=== PATIENT | male | born 1945 | race Caucasian/White ===

== ENCOUNTER 2017-04-11 09:34 | Emergency (ER) | payer MEDICARE, BC ==
[2017-04-11 10:09] VITALS: BP 161/78
--- NOTE | 2017-04-11 10:32 | EDM.PDOC ---
[id number] Complaint: L LEG INJURY Time Seen by Provider: 04/11/17 10:00 Source of Information: Reports: Patient, Family History Limitations: Reports: No Limitations - History of Present Illness INITIAL COMMENTS - FREE TEXT/NARRATIVE: 71-year-old male is in the emergency room wanting his lower left leg looked at. He fell and injured his lower left leg when he had it go between 2 objects and get pinched, then turned while he fell. He said swelling of the lower extremity since, bruising, and pain especially when for standing and walking, however after activity it seems to be better. Today it started to become red and warm and it concerned him. It is also not improving. No other injury, no fever or chills. Onset: Other (One week ago) Location: Reports: Lower Extremity, Left Quality: Reports: Ache, Throbbing Severity: Moderate Improves with: Reports: Other (Improves after taking a few steps) Worsens with: Reports: Other (Initial weightbearing and activity) Associated Symptoms: Reports: No Other Symptoms - Related Data Allergies Allergy/AdvReac Type Severity Reaction Status Date / Time No Known Allergies Allergy Verified 05/23/14 15:44 Home Meds: Home Meds Aspirin [Ecotrin] 81 mg PO DAILY 05/23/14 [History] Atenolol [Atenolol] 100 mg PO DAILY 05/23/14 [History] Fluticasone Propionate [Flovent] 1 spray INH BID 04/11/17 [History] Lisinopril [Prinivil] 0.5 tab PO DAILY 04/11/17 [History] PARoxetine [Paxil] 0.5 tab PO DAILY 04/11/17 [History] Pravastatin [Pravachol] 0.5 tab PO BEDTIME 04/11/17 [History] Prazosin HCl [Prazosin] 2 tab PO BEDTIME 04/11/17 [History] Primidone 1 tab PO QID 04/11/17 [History] Past Medical History Cardiovascular History: Reports: High Cholesterol, Hypertension Respiratory History: Reports: Pneumonia, Recurrent Genitourinary History: Reports: Prostate Disorder - Past Surgical History HEENT Surgical History: Reports: Cataract Surgery Social & Family History - Tobacco Use Years of Tobacco use: 25 - Alcohol Use Days Per Week of Alcohol Use: 0 - Recreational Drug Use Recreational Drug Use: No Review of Systems - Review of Systems Review Of Systems: See Below Constitutional: Denies: Fever Respiratory: Denies: Shortness of Breath Cardiovascular: Denies: Chest Pain GI/Abdominal: Denies: Abdominal Pain, Nausea, Vomiting Genitourinary: Reports: No Symptoms Skin: Reports: Bruising, Erythema, Other (Developing some warmth over the anterior sexton on the injured left side) Neurological: Reports: No Symptoms Psychiatric: Reports: No Symptoms ED EXAM, GENERAL - Physical Exam Exam: See Below Exam Limited By: No Limitations General Appearance: Alert, No Apparent Distress Respiratory/Chest: No Respiratory Distress, Lungs Clear Cardiovascular: Regular Rate, Rhythm Extremities: Other (Exam is otherwise limited to the lower extremities. He has tense edema through the lower left leg from the knee to the forefoot, ecchymosis along the medial ankle and anterior lower leg with erythema and warmth, tenderness to palpation over the anterior lower leg. No crepitus or deformity.) Course - Vital Signs Last Recorded V/S: Last Vital Signs Temp 99.1 F 04/11/17 10:36 Pulse 60 04/11/17 10:36 Resp 16 04/11/17 10:36 BP 161/78 H 04/11/17 10:36 Pulse Ox 94 L 04/11/17 10:36 - Orders/Labs/Meds Orders: Active Orders 24 hr Category Date Time Status Ankle Min 3V Lt [CR] Stat Exams 04/11/17 09:56 Taken Tibia Fibula Lt [CR] Stat Exams 04/11/17 09:56 Taken VL Duplex Lwr Ext Veins Ltd Lt [US] Stat Exams 04/11/17 10:21 Taken DME for Discharge [COMM] Stat Oth 04/11/17 11:19 Ordered - Re-Assessments/Exams Free Text/Narrative Re-Assessment/Exam: 04/11/17 10:38 An x-ray of the lower leg as well as the ankle were obtained and show no acute fracture. This was followed by an ultrasound of the lower extremity. 04/11/17 11:21 Ultrasound was negative. A four-inch Ole wrap was applied the lower leg, patient was given 7 days with the cephalexin to take 500 3 times daily and 10 [place] for additional pain control. Crutches were given, and he was told to followup in 3-4 days if crutches are still needed. Departure - Departure Time of Disposition: 11:34 Disposition: Home, Self-Care 01 Condition: good Clinical Impression: Traumatic hematoma of left lower leg with infection Qualifiers: Encounter type: initial encounter Qualified Code(s): S80.12XA - Contusion of left lower leg, initial encounter - Discharge Information Instructions: Hematoma, [id number] Referrals: Odin Little MD [Primary Care Provider] - Forms: ED Department Discharge Care Plan Goals: Continue your regular medications, add antibiotic as prescribed. Wrap leg for support, elevate when able and use crutches until pain improves. Recheck in 4 or 5 days if still unable to bear weight without significant discomfort. Use stronger pain medications as prescribed when needed. - My Orders Last 24 Hours: My Active Orders 04/11/17 09:56 Ankle Min 3V Lt [CR] Stat Tibia Fibula Lt [CR] Stat 04/11/17 10:21 VL Duplex Lwr Ext Veins Ltd Lt [US] Stat 04/11/17 11:19 DME for Discharge [COMM] Stat - Assessment/Plan Last 24 Hours: My Active Orders 04/11/17 09:56 Ankle Min 3V Lt [CR] Stat Tibia Fibula Lt [CR] Stat 04/11/17 10:21 VL Duplex Lwr Ext Veins Ltd Lt [US] Stat 04/11/17 11:19 DME for Discharge [COMM] Stat
--- NOTE | 2017-04-13 10:27 | CR ---
Tibia Fibula Lt, Ankle Min 3V Lt INDICATION: fall FINDINGS: No definitive acute fracture. Mild degenerative changes in the left ankle. Achilles calcan eal spur. Small benign exostosis proximal tibia. Exam otherwise negative.
--- NOTE | 2017-04-13 10:28 | US ---
VL Duplex Lwr Ext Veins Ltd Lt INDICATION: trauma,swelling rule out dvt FINDINGS: Ultrasound examination of the lower extremity using Doppler and compressive technique demo nstrates that the common femoral, femoral, and popliteal veins are patent, and negative for thrombus . The calf veins were segmentally visualized and are negative where seen. Small probable 2.8 cm filomena enrique in the soft tissues of the anterior left ankle. IMPRESSION: Negative for deep venous thrombosis. Small hematoma.
== END 2017-04-11 11:35 | disposition home or self-care (01) ==
LOC: JP.ED 09:34
DX: S80.12XA Contusion of left lower leg, initial encounter (principal); S90.02XA Contusion of left ankle, initial encounter; M79.89 Other specified soft tissue disorders; L08.89 Other specified local infections of the skin and subcutaneous tissue; I10 Essential (primary) hypertension; E78.00 Pure hypercholesterolemia, unspecified; Z98.49 Cataract extraction status, unspecified eye; Z79.82 Long term (current) use of aspirin; Z79.899 Other long term (current) drug therapy; W01.10XA Fall on same level from slipping, tripping and stumbling with subsequent striking against unspecified object, initial encounter
CPT/HCPCS: 73590-26-LT; 73590-LT; 73610-26-LT; 73610-LT; 93971-26-LT; 93971-LT; 99283; 99284

== ENCOUNTER 2020-08-05 17:46 | Emergency (ER) | payer MEDICARE, OTHER ==
[2020-08-05 18:24] VITALS: BP 174/86; PULSE 58
[2020-08-05] MEDS ORDERED: Acetaminophen 325 MG Tab PO ONE (18:26)
--- NOTE | 2020-08-05 18:33 | EDM.PDOC ---
ED HPI GENERAL MEDICAL PROBLEM - General Chief Complaint: Upper Extremity Injury/Pain Stated Complaint: HIT HEAD FROM FALL Time Seen by Provider: 08/05/20 18:28 Source of Information: Reports: Patient History Limitations: Reports: No Limitations - History of Present Illness INITIAL COMMENTS - FREE TEXT/NARRATIVE: 74-year-old male presents to the emergency department after an injury this afternoon. The patient was sitting in his deer stand being out when he fell backwards and struck his head on a hard surface. He leaves he was knocked out for a few seconds. He was able to climb down out of the stand and drive back to his house which was close by. He reports pain in his left shoulder with movement. He denies any other injuries. He has an abrasion on the right hand. He is not on anticoagulants. He takes an aspirin a day. Denies any neurological symptoms. He denies any chest or abdominal pain. He has no pain in his pelvis or hips. Left Shoulder Pain Score (Numeric/FACES): 7 - Related Data Allergies Allergy/AdvReac Type Severity Reaction Status Date / Time No Known Allergies Allergy Verified 05/23/14 15:44 Home Meds: Home Meds Aspirin [Ecotrin EC] 81 mg PO DAILY 05/23/14 [History] atenoloL [Atenolol] 50 mg PO DAILY 05/23/14 [History] PARoxetine [Paxil] 0.5 tab PO DAILY 04/11/17 [History] Pravastatin [Pravachol] 0.5 tab PO BEDTIME 04/11/17 [History] Furosemide [Lasix] 20 mg PO ASDIRECTED PRN 08/05/20 [History] amLODIPine [Norvasc] 5 mg PO DAILY 08/05/20 [History] Past Medical History Cardiovascular History: Reports: High Cholesterol, Hypertension Respiratory History: Reports: Pneumonia, Recurrent Genitourinary History: Reports: Prostate Disorder Oncologic (Cancer) History: Reports: Prostate - Infectious Disease History Infectious Disease History: Reports: Chicken Pox - Past Surgical History HEENT Surgical History: Reports: Cataract Surgery Male Surgical History: Reports: Prostatectomy Social & Family History - Tobacco Use Smoking Status *Q: Never Smoker Review of Systems - Review of Systems Review Of Systems: See Below Eyes: Denies: Blurred Vision Ears: Reports: No Symptoms Nose: Reports: No Symptoms Mouth/Throat: Reports: No Symptoms Respiratory: Denies: Shortness of Breath, Pleuritic Chest Pain, Cough Cardiovascular: Reports: No Symptoms GI/Abdominal: Reports: No Symptoms Musculoskeletal: Reports: Other (Left shoulder pain.) Skin: Reports: Other (Patient right hand.) Neurological: Reports: No Symptoms. Denies: Dizziness, Headache, Numbness Psychiatric: Reports: No Symptoms ED EXAM, GENERAL - Physical Exam Exam: See Below Exam Limited By: No Limitations General Appearance: Alert, WD/WN, Mild Distress Ears: Normal External Exam, Normal Canal Nose: Normal Inspection Throat/Mouth: Normal Inspection Head: Other (He has a hematoma over the occiput. There is no crepitus or bony step-offs.) Neck: Other (He has pain on right rotation. He has no pain left rotation. There is no tenderness of the cervical spine. His neck collar.) Cardiovascular: Normal Peripheral Pulses, Regular Rate, Rhythm GI/Abdominal: Normal Bowel Sounds, Soft, Non-Tender Back Exam: No: CVA Tenderness (R), CVA Tenderness (L), Paraspinal Tenderness, Vertebral Tenderness Extremities: Other (There is tenderness over the left anterior shoulder. He is able to abduct and flex the left shoulder to approximately 90 degrees. No abnormalities noted on palpation or affection.) Neurological: Alert, Oriented, Normal Cognition, No Motor/Sensory Deficits Psychiatric: Normal Affect, Normal Mood Skin Exam: Other (There is an abrasion over the right hand.) Course - Vital Signs Text/Narrative:: This patient presents to the emergency department after a fall today. He was in his deer stand and fell inside a close space. He fell from a sitting level. He may have experienced a momentary loss of consciousness. He had a small hematoma on the occiput. He is not on anticoagulants. Neurologic exam was normal and a CT scan of his head that was noncontrast was normal per radiology. He had left shoulder pain and an x-ray was unremarkable. A chest x-ray suggested extra pleural myotome on the left side and a CT scan of the chest was obtained. It showed a compressive atelectasis on the left side as well as a small loculated pleural effusion. Also had a small pulmonary nodule on the left lung field. He has a small right renal mass which he knew of and has been evaluated in the past by his doctor. Patient has a normal CBC. His initial primary exam was unremarkable. The secondary exam shows no other abnormalities. He took Tylenol for pain while in the ED and will stay on OTC analgesics PRN. He will follow-up with his primary care provider in the clinic. He had a nonacute CT scan of the neck and lumbar spine. The patient and his agreed with this plan. He was discharged home in stable condition. Last Recorded V/S: Last Vital Signs Temp 37.6 C 08/05/20 18:04 Pulse 58 L 08/05/20 18:04 Resp 18 08/05/20 18:04 BP 174/86 H 08/05/20 18: Pulse Ox 94 L 08/05/20 18:04 - Orders/Labs/Meds Labs: Laboratory Tests 08/05/20 Range/Units 18:40 WBC 7.3 (4.5-11.0) K/uL RBC 4.80 (4.30-5.90) M/uL Hgb 13.2 (12.0-15.0) g/dL Hct 42.2 (40.0-54.0) % MCV 88 (80-98) fL MCH 28 (27-31) pg MCHC 31 L (32-36) % Plt Count 129 L (150-400) K/uL Meds: Medications Discontinued Medications Generic Name Dose Route Start Last Admin Trade Name Artemio PRN Reason Stop Dose Admin Acetaminophen 650 mg 08/05/20 18:26 08/05/20 18:29 Tylenol PO 08/05/20 18:27 650 mg NOW ONE Administration Departure - Departure Time of Disposition: 21:52 Disposition: Home, Self-Care 01 Condition: Good Clinical Impression: Shoulder contusion Clinical Impression: (Ruled Out): COVID-19 - Discharge Information *PRESCRIPTION DRUG MONITORING PROGRAM REVIEWED*: No *COPY OF PRESCRIPTION DRUG MONITORING REPORT IN PATIENT NIYA: No Instructions: Contusion, Shoulder Pain, [id number] Referrals: Elizabeth Lowe MD [Primary Care Provider] - Forms: ED Department Discharge, ED Return to Work/School Form Additional Instructions: Tylenol or ibuprofen as needed for pain. Follow-up with your primary care doctor regarding your left shoulder and a pulmonary nodule in your left lung. Turn to the ER if you have increased problems or concerns. Sepsis Event Note (ED) - Evaluation Sepsis Screening Result: No Definite Risk - Focused Exam Vital Signs: Vital Signs Temp Pulse Resp BP Pulse Ox 08/05/20 18:04 37.6 C 58 L 18 174/86 H 94 L 08/05/20 18:00 37.6 C 58 L 18 174/86 H 94 L
--- NOTE | 2020-08-05 19:44 | CRLCR ---
Indication: Fell backwards Technique: Four views left shoulder Comparison: None Findings: Bones: Alignment is normal. No fractures or bone lesions. Joint spaces: Mild degenerative changes in the acromioclavicular and glenohumeral joints. Soft tissues: Unremarkable. Impression: No acute abnormality. Dictated by Basilia Sanchez MD @ Aug 05 2020 7:42PM Signed by Dr. Basilia Sanchez @ Aug 05 2020 7:42PM
--- NOTE | 2020-08-05 19:46 | CRLCR ---
INDICATION: Injury TECHNIQUE: Chest 2 views. COMPARISON: None FINDINGS: Cardiovascular and mediastinum: Heart size and vasculature are normal in caliber and appearance. Mediastinum is within normal limits. Lungs and pleural spaces: There is a 1.9 x 12.3 cm convex density along the left lower lateral ribs. Along the left lateral pleura lungs are clear. No sign of infiltrate or mass. No sign of pleural effusion. No pneumothorax. Bones and soft tissues: No significant findings. IMPRESSION: Possible extrapleural hematoma, loculated pleural effusion, or pleural thickening along the left lateral pleura. No fracture identified. Consider chest CT for further evaluation. Dictated by Basilia Sanchez MD @ Aug 05 2020 7:45PM Signed by Dr. Basilia Sanchez @ Aug 05 2020 7:45PM
--- NOTE | 2020-08-05 19:48 | CRLCT ---
INDICATION: Fall TECHNIQUE: Head CT without contrast. COMPARISON: None FINDINGS: CSF spaces: Within normal limits for age. Brain parenchyma: There are nonspecific low attenuation white matter changes consistent with chronic microvascular disease. No sign of mass, hemorrhage, or midline shift. Skull base and calvarium: The visualized paranasal sinuses and mastoid air cells demonstrate no acute or significant findings. The visualized orbits are grossly unremarkable. No skull fractures. There is intracranial atherosclerosis. IMPRESSION: 1. No acute findings. 2. Nonspecific white matter disease, typical of chronic microvascular disease. Please note that all CT scans at this facility use dose modulation, iterative reconstruction, and/or weight-based dosing when appropriate to reduce radiation dose to as low as reasonably achievable. Dictated by Basilia Sanchez MD @ Aug 05 2020 7:46PM Signed by Dr. Basilia Sanchez @ Aug 05 2020 7:46PM
--- NOTE | 2020-08-05 19:52 | CRLCT ---
INDICATION: Injury TECHNIQUE: CT cervical spine without contrast. COMPARISON: None. FINDINGS: Vertebral alignment: Alignment is normal. Vertebrae: There are no fractures or suspicious bony lesions. Discs and facet joints: There are moderate to severe multilevel degenerative disc and facet changes. Extraspinal findings: Paraspinous soft tissues are unremarkable. IMPRESSION: 1. No sign of acute injury. 2. Multilevel degenerative spondylosis. Please note that all CT scans at this facility use dose modulation, iterative reconstruction, and/or weight-based dosing when appropriate to reduce radiation dose to as low as reasonably achievable. Dictated by Basilia Sanchez MD @ Aug 05 2020 7:50PM Signed by Dr. Basilia Sanchez @ Aug 05 2020 7:50PM
--- NOTE | 2020-08-05 21:18 | CRLCT ---
INDICATION: Fall TECHNIQUE: CT lumbar spine without contrast. COMPARISON: None FINDINGS: Vertebral alignment: Alignment is normal. Vertebrae: There are no fractures or suspicious bony lesions. Discs and facet joints: Mild multilevel degenerative disc and facet changes Extraspinal findings: 2.4 cm heterogeneous mass on the medial aspect the right kidney. Small left pleural effusion. IMPRESSION: No lumbar spine fracture or subluxation. Right renal mass. Recommend nonemergent renal CT for further evaluation. Small left pleural effusion. Please note that all CT scans at this facility use dose modulation, iterative reconstruction, and/or weight-based dosing when appropriate to reduce radiation dose to as low as reasonably achievable. Dictated by Basilia Sanchez MD @ Aug 05 2020 9:11PM Signed by Dr. Basilia Sanchez @ Aug 05 2020 9:17PM
--- NOTE | 2020-08-05 21:28 | CRLCT ---
INDICATION: Trauma TECHNIQUE: CT chest without contrast. COMPARISON: Chest radiograph from earlier today FINDINGS: Cardiovascular structures: Heart size is normal. Thoracic aorta and main pulmonary artery are normal in caliber. Mediastinum and cedrick: No sign of mass or adenopathy. Lungs: Compressive atelectasis at the left lung base. 6 mm pulmonary nodule right upper lobe image 28 series 2. Mild emphysematous changes. Linear atelectasis or scarring in the lingula. Calcified granuloma right lower lobe. Pleura and pericardium: Small, loculated left pleural effusion measuring 4 Hounsfield units in density. Chest wall and axilla: No mass or adenopathy. Upper abdomen: 2.4 cm heterogeneous mass on the medial aspect of the right kidney, incompletely imaged. There may be some fat density within this mass. Bones: No acute fracture subluxation. Calcification of the anterior longitudinal ligament of the thoracic spine. IMPRESSION: No intrathoracic trauma. Small, simple, loculated left pleural effusion with compressive atelectasis in the left lower lobe. 6 mm right upper lobe pulmonary nodule. Recommend follow-up per Fleischner society guidelines, as listed below. Heterogeneous mass on the right kidney, incompletely imaged. There may be some fat density within this mass which would indicate an angiomyolipoma. A non emergent renal CT is recommended for further evaluation. Emphysema. FLEISCHNER SOCIETY GUIDELINES - SOLID NODULES: SINGLE LOW RISK - nodule less than 6 mm: No routine follow-up. - nodule 6-8 mm: CT at 6-12 months, then consider CT at 18-24 months. - nodule greater than 8 mm: Consider CT at 3 months, PET/CT or tissue sampling. SINGLE HIGH RISK - nodule less than 6 mm: Optional CT at 12 months. - nodule 6-8 mm: CT at 6-12 months, then CT at 18-24 months. - nodule greater than 8 mm: Consider CT at 3 months, PET/CT or tissue sampling. Please note that all CT scans at this facility use dose modulation, iterative reconstruction, and/or weight-based dosing when appropriate to reduce radiation dose to as low as reasonably achievable. Dictated by Basilia Sanchez MD @ Aug 05 2020 9:17PM Signed by Dr. Basilia Sanchez @ Aug 05 2020 9:26PM
== END 2020-08-05 22:07 | disposition home or self-care (01) ==
LOC: JP.ED 17:46
DX: S40.012A Contusion of left shoulder, initial encounter (principal); S00.03XA Contusion of scalp, initial encounter; S60.511A Abrasion of right hand, initial encounter; I10 Essential (primary) hypertension; E78.00 Pure hypercholesterolemia, unspecified; Z79.899 Other long term (current) drug therapy; Z79.82 Long term (current) use of aspirin; W08.XXXA Fall from other furniture, initial encounter
CPT/HCPCS: 36415; 70450; 71046; 71250; 72125; 72131; 73030; 85027; 99284; A9270; 99283

== ENCOUNTER 2024-02-23 14:13 | Emergency (ER) | payer OTHER ==
[2024-02-23 16:08] VITALS: BP 128/72; PULSE 83
[2024-02-23] MEDS: oxyCODONE 5 MG Tab PO ONE (16:13)
== END 2024-02-23 16:20 | disposition home or self-care (01) ==
LOC: JP.ED 14:13
DX: M25.551 Pain in right hip (principal); M25.552 Pain in left hip; I10 Essential (primary) hypertension; E78.00 Pure hypercholesterolemia, unspecified; Z87.891 Personal history of nicotine dependence; Z79.899 Other long term (current) drug therapy; W10.9XXA Fall (on) (from) unspecified stairs and steps, initial encounter; Y92.009 Unspecified place in unspecified non-institutional (private) residence as the place of occurrence of the external cause
CPT/HCPCS: 72170; 99283; A9270